=== PATIENT | male | born 1980 | race Hispanic/Latino ===

== ENCOUNTER 2020-11-26 11:46 | Outpatient (NON) | payer OTHER, SELFPAY ==
[2020-11-27 00:37] LABS: SARS-CoV-2 RNA PCR Positive
== END 2020-11-26 11:47 ==
PROVIDERS: Visit Provider Physician Assistant
DX: U07.1 COVID-19 (principal)
CPT/HCPCS: C9803; U0003; U0005

== ENCOUNTER 2025-02-16 00:07 | Day surgery (SDC) | payer OTHER, SELFPAY ==
[2025-02-05 13:57] VITALS: BMI 43.6
--- OUTSIDE RECORDS SUMMARY | 2025-02-16 00:12 | XMS_ITS | Continuity of Care Document ---
Author Organization [facility] Address [address] [place] [address] [address] [place] [address] Phone Care Team Providers Care Compliance Lead Name Role Phone Caren Lundberg Unavailable Unavailable Procedures Procedure Date Remove Foreign Body From Eye Advance Directives Directive Yes / No Effective Date File Name No Information Encounters Encounter Description Practice Location Reason(s) For Visit Diagnoses Date Provider Providers Copied on Encounter [facility], [id number] [place] [address] [address], [place], [place], [id number], [place] tel:[phone] [facility] [place] No Information [phone] Tamika Fabian. [address] [facility] , [address], [place], [address], [place]. tel:[phone] Family History Family Member Type Diagnosis Age At Onset No Information Payers Payer name Insurance type Covered constitution party ID Authoriza tion(s) No Information Social History Type Description Quantity Date Captured Comments Sex Male Smoking Status No Information Chief Complaint And Reason For Visit No Information Reason For Referral Reason For Referral No Information History Of Present Illness Encounter Date Complaint History Of Prese nt Illness No Information Functional Status Date Functional Assessmen t No Information Instructions Date Instruction Additional Infor mation No Information Assessments Type Assessment Date No Information Patient Care Teams Name Effective Dates (start - stop) Status Members No Information
--- OUTSIDE RECORDS SUMMARY | 2025-02-16 00:12 | XMS_ITS | Data Portability ---
Author Organization [place] - [facility], Yen Flood Address [address] [place] [address] Assessment No assessment recorded. Plan of Treatment Reminders Order Date Submit Date Provider Last Modified By Organization Details Last Modified Time Details Appointments InPerson; Chronic Disease Mgmt 2024 07:00A Elpidio Kessler NP Not available Not available Not available Lab TSH, ultra-sen sitive, serum 2023 [facility] [address] [place] [address], [address], 08/02/2024 10:16:28 lipid panel, serum 2023 024 [facility] [address] [place] [address], [address], 08/02/2024 10:16:28 HbA1c (hemoglob in A1c), blood 2023 024 [facility], [address] [place] [address], [address], 08/02/2024 10:16:28 CMP, serum or plasma 2023 024 [facility] [address] [place] [address], [address], 08/02/2024 10:16:27 Referral gastroent erologist referral - Screening colonosco py - family hx of colon cancer in early 40s. 2023 024 Norm Holder MD, [address], [address], [place], [address], 09/13/2024 09:45:17 Procedures colonosco py screening (PROC) - Sister with colon cancer at age 43. Needs screening colonosco py. 2023 024 [email or web address] [facility] Referral Coordinators, [address] [facility], [address], [place], [address], 11/01/2024 15:43:47 Surgeries None recorded. Imaging electroca rdiogram 2024 025 [facility], [address] [place] [address], [phone], 11/01/2024 11:05:36 Medication Orders lisinopri l 20 mg tablet 2024 025 [facility], [address] [place] [address], [address], 11/01/2024 08:27:23 lisinopri l 20 mg tablet [address], [address] [place] [address], [address], 08/01/2024 09:33:46 Patient TargetsNo targets recorded. Patient InstructionsNo instructions recorded. 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 Referring Physician: Lyric Cr, Family Medicine, Encounter Date: 05/30/2024 Results Created Date Observation Date Name Description Value Unit Range Abnormal Flag Note LastModifiedBy Organization Detail LastModifiedTime 08/01/2008/02/2024 COMP. METAB OLIC PANEL (14) glucose 107 mg/dL 70-99 above high normal Not Available [facility] ([facility]) [address] [facility], [place], [address], 08/02/2024 10:16:27 08/01/2008/02/2024 COMP. METAB OLIC PANEL (14) BUN 17 mg/dL 6-24 normal Not Available [facility] ([facility]) [address] [place] [place], [address], 08/02/2024 10:16:27 08/01/20 24 08/02/2024 COMP. METAB OLIC PANEL (14) creatinine 0.75 mg/dL 0.76-1 .27 below low normal Not Available [facility] ([facility]) [address] [place] [place], [address], 08/02/2024 10:16:27 08/01/20 24 08/02/2024 COMP. METAB OLIC PANEL (14) eGFR 116 mL/mi n/1.7 3 >59 normal Not Available [facility] ([facility]) [address] [place] [place], [address], 08/02/2024 10:16:27 08/01/20 24 08/02/2024 COMP. METAB OLIC PANEL (14) BUN/creatini ne ratio 23 9-20 above high normal Not Available [facility] ([facility]) [address] [place], [address], 08/02/2024 10:16:27 08/01/20 24 08/02/2024 COMP. METAB OLIC PANEL (14) sodium 137 mmol/ L 134-14 4 normal Not Available [facility] ([facility]) [address] [place], [address], 08/02/2024 10:16:27 08/01/20 24 08/02/2024 COMP. METAB OLIC PANEL (14) potassium 4.6 mmol/ L 3.5-5. 2 normal Not Available [facility] ([facility]) [address] [place], [address], 08/02/2024 10:16:27 08/01/20 24 08/02/2024 COMP. METAB OLIC PANEL (14) chloride 101 mmol/ L 96-106 normal Not Available [facility] ([facility]) [address] [facility] [place], [address], 08/02/2024 10:16:27 08/01/20 24 08/02/2024 COMP. METAB OLIC PANEL (14) carbon dioxide, total 24 mmol/ L 20-29 normal Not Available [facility] ([facility]) [address] [facility] [place], [address], 08/02/2024 10:16:27 08/01/20 24 08/02/2024 COMP. METAB OLIC PANEL (14) calcium 9.9 mg/dL 8.7-10 .2 normal Not Available [facility] ([facility]) [address] [facility] [place], [address], 08/02/2024 10:16:27 08/01/20 24 08/02/2024 COMP. METAB OLIC PANEL (14) protein, total 6.8 g/dL 6.0-8. 5 normal Not Available [facility] ([facility]) [address] [place], [address], 08/02/2024 10:16:27 08/01/20 24 08/02/2024 COMP. METAB OLIC PANEL (14) albumin 4.6 g/dL 4.1-5. 1 normal Not Available [facility] ([facility]) [address] [place], [address], 08/02/2024 10:16:27 08/01/20 24 08/02/2024 COMP. METAB OLIC PANEL (14) globulin, total 2.2 g/dL 1.5-4. 5 Not Available [facility] ([facility]) [address] [place], [address], 08/02/2024 10:16:27 08/01/20 24 08/02/2024 COMP. METAB OLIC PANEL (14) bilirubin, total 0.4 mg/dL 0.0-1. 2 normal Not Available [facility] ([facility]) [address] [place], [address], 08/02/2024 10:16:27 08/01/2008/02/2024 COMP. METAB OLIC PANEL (14) alkaline phosphatase 57 IU/L 44-121 normal Not Available [facility]) [address] [place], [address], 08/02/2024 10:16:27 08/01/2008/02/2024 COMP. METAB OLIC PANEL (14) AST (SGOT) 19 IU/L 0-40 normal Not Available [facility] ([facility]) [address] [place], [address], 08/02/2024 10:16:27 08/01/2008/02/2024 COMP. METAB OLIC PANEL (14) ALT (SGPT) 17 IU/L 0-44 normal Not Available [facility] ([facility]) [address] [facility], [place], [address], 08/02/2024 10:16:27 08/01/2008/02/2024 LIPID PANEL WITH LDL/H DL RATIO cholesterol, total 187 mg/dL 100-19 9 normal Not Available [facility] ([facility]) [address] [facility], [place], [address], 08/02/2024 10:16:28 08/01/2008/02/2024 LIPID PANEL WITH LDL/H DL RATIO triglyceride s 79 mg/dL 0-149 normal Not Available [facility] ([facility]) [address] [place], [address], 08/02/2024 10:16:28 08/01/2008/02/2024 LIPID PANEL WITH LDL/H DL RATIO HDL cholesterol 59 mg/dL >39 normal Not Available [facility] ([facility]) [address] [place] [place], [address], 08/02/2024 10:16:28 08/01/20 24 08/02/2024 LIPID PANEL WITH LDL/H DL RATIO VLDL cholesterol lizabeth 15 mg/dL 5-40 Not Available [facility] ([facility]) [address] [place], [address], 08/02/2024 10:16:28 08/01/20 24 08/02/2024 LIPID PANEL WITH LDL/H DL RATIO LDL chol calc ([facility]) 113 mg/dL 0-99 above high normal Not Available [facility] ([facility]) [address] [facility], [place], [address], 08/02/2024 10:16:28 08/01/2008/02/2024 LIPID PANEL WITH LDL/H DL RATIO LDL calc comment: [employer] Not Available [facility] ([facility]) [address] [facility], [place], [address], 08/02/2024 10:16:28 08/01/2008/02/2024 LIPID PANEL WITH LDL/H DL RATIO LDL/HDL ratio 1.9 ratio 0.0-3. 6 LDL/H DL Ratio Men Women 1/2 Avg.R isk 1.0 1.5 Avg.R isk 3.6 3.2 2X Avg.R isk 6.2 5.0 3X Avg.R isk 8.0 6.1 Not Available [facility] ([facility]) [address] [place], [address], 08/02/2024 10:16:28 08/01/2008/02/2024 HEMOG LOBIN A1C hemoglobin A1C 5.6 % 4.8-5. 6 normal Predi abete s: 5.7 - 6.4 Diabe preethi: >6.4 Glyce juma contr ol for adult s with diabe preethi: <7.0 Not Available [facility] ([facility]) [address] [facility], [place], [address], 08/02/2024 10:16:28 08/01/2008/02/2024 TSH RFX ON ABNOR MAL TO FREE T4 TSH 2.480 uIU/m L 0.450- 4.500 normal Not Available [facility] ([facility]) [address], [place], [address], 08/02/2024 10:16:28 11/01/19 25 11/01/2024 elect rocar diogr am No observ ation record ed. [email or web address] [employer] [address] [place], [address], 11/01/2024 11:05:26 11/01/19 25 11/01/2024 elect rocar diogr am No observ ation record ed. 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 Problems Name Problem SNOMED Code Status Onset Date Resolution Date Notes Provider Name and Address Organization Details Recorded Time Morbid obesity 722842280 Active 2021 Richelle Ervin [place], [place] - [facility] 4 18:36:42 Obstructive sleep apnea syndrome 34745505 Active 2022 Richelle bartlett, [place] - [facility] 4 18:36:48 Tobacco user 930400823 Active 2021 Richelle bartlett, [place] - [facility] 4 18:36:53 Hypertensive disorder 65290457 Active 2022 Richelle [place]lett, [place] - [facility] 4 18:36:35 Scrotal mass 19235628 Active 2023 Lyric Cr NP [address], [email or web address], [address], [place] [facility] 4 15:18:59 Family history of cancer of colon 156465935 Active 2024 Sister - age 43 Jacquie Kessler NP [address], [email or web address], [address], [place] [facility] 5 08:09:00 Problem Notes None recorded. Procedures Surgical History None recorded. Imaging Results Imaging Date Name Status LastModified by Organization Details LastModified Time 11/01/2024 electrocardiogram completed [employer] [address] [place], [address], 11/01/2024 11:05:26 11/01/2024 electrocardiogram completed [email or web address] [employer] [address] [place], [address], 11/01/2024 10:27:39 Procedure Notes None recorded. Medical Equipment None Reported. Allergies Allergen ID Allergen Name Allergen Category Reaction Reaction Severity Criticality Documentation Date Start Date Code Code System Note Provider Name and Address Organization Details Recorded Time 974070 No Allergy Informati on Available Not available Not available Not available Not available 02/10/2024 90702 VocalizeLocal Comme nt: React ion Class : Aller gy; Richelle Ervin [place], [place] - [facility] 4 18:35:50 No known drug allergies Medications Name Sig Start Date Stop Date Status Note LastModified by Organization Details LastModified Time Twinrix 720 RA unit-20 mcg/mL intramusc ular suspensio n 06/24 completed StopType : Physicia n Stop Eddie gIdentif icationN umber: [id number] N extDoseD ate: 3 9:45:00 AM Const antIndic ator: No CSASc hedule: 0 active _status_ dt_tm: 3 9:45:22 AM Not Available Not Available Not Available lisinopri l 20 mg tablet Take 1 tablet every day by oral route. 2024 active Not Available Not Available Not Avai lable phentermi ne 37.5 mg tablet 0.5-1 tab(s) Oral daily 05/30 completed Not Available Not Available Not Available lisinopri l 10 mg tablet 1 tab(s) Oral daily 11/01 completed Not Available Not Available Not Available hydrochlo rothiazid e 12.5 mg capsule TAKE ONE CAPSULE BY MOUTH ONCE DAILY 06/24 completed StopType : Physicia n Stop Eddie gIdentif icationN umber: [id number] S cheduled PRN: No Const antIndic ator: Yes CSAS chedule: 0 active _status_ dt_tm: 3 12:48:51 PM Not Available Not Available Not Available albuterol 90 mcg/actua tion aerosol inhaler 2 puff(s) Inhale q4-6 hrs,PRN: take 10 minutes before exercise for shortnes s of breath 2022 active Not Available Not Available Not Avai lable Adacel (Tdap Adolesn/A dult)(PF) 2 Lf-(2.5-5 -3-5)-5 Lf/0.5 mL IM syringe 04/02 completed StopType : Physicia n Stop Eddie gIdentif icationN umber: [id number] N extDoseD ate: 04/02/2022 2:26:00 PM Const antIndic ator: No CSASc hedule: 0 active _status_ dt_tm: 04/02/2022 2:46:31 PM Not Available Not Available Not Available Vitals Date Recorded Body height Body mass index (BMI) Body weight Body temperature Oxygen saturation Oxygen saturation in Arterial blood by Pulse oximetry Heart rate Systolic blood pressure Diastolic blood pressure Provider Name and Address Organization Details Last Updated DateTime 4 185.42 cm 46.8 kg/m2 437180. 29 g 97.3 [degF] 98 % 98 % 82 /min 150 mm[Hg] 92 mm[Hg] Jessica Lee [place] [facility] 4 15:01:20 Date Recorded Body height Body mass index (BMI) Body weight Body temperature Oxygen saturation Oxygen saturation in Arterial blood by Pulse oximetry Heart rate Respiratory rate Systolic blood pressure Diastolic blood pressure Provider Name and Address Organization Details Last Updated DateTime 4 180.34 cm 48 kg/m2 252902. 78 g 98 [degF] 100 % 100 % 77 /min 17 /min 143 mm[Hg] 82 mm[Hg] Winnie Carrillo [place] [facility] 4 09:12:25 Date Recorded Body height Body mass index (BMI) Body weight Heart rate Body temperature Oxygen saturation Oxygen saturation in Arterial blood by Pulse oximetry Respiratory rate Systolic blood pressure Diastolic blood pressure Provider Name and Address Organization Details Last Updated DateTime 5 180.34 cm 47.6 kg/m2 486246 g 74 /min 98.5 [degF] 98 % 98 % 16 /min 142 mm[Hg] 85 mm[Hg] Tyrell Lorenzo [place] [facility] 08:09:25 Date Recorded Systolic blood pressure Diastolic blood pressure Provider Name and Address Organization Details Last Updated DateTime 11/01/2024 126 mm[Hg] 82 mm[Hg] Jacquie Kessler, [employer] [address], [facility], [address], [place] [facility] 11/01/2024 08:29:10 Social History Question Answer Notes LastModified by Organization Details LastModified Time Tobacco Smoking Status Former Smoker Richelle Mueller [place], [place] [facility] 05/27/2024 18:40:31 What Is Your Level Of Alcohol Consumption? Moderate [email or web address] Information not available 11/01/2024 What Is Your Level Of Caffeine Consumption? Moderate Information not available 05/27/2024 How Much Tobacco Do You Chew? None Information not available 11/01/2024 In The 14 Days Before Symptom Onset, Have You Had Close Contact With A Laboratory-confi rmed COVID-19 While That Case Was Ill? No Information not available 05/30/2024 In The 14 Days Before Symptom Onset, Have You Had Close Contact With A Person Who Is Under Investigation For COVID-19 While That Person Was Ill? No [email or web address] Information not available 08/01/2024 Have You Been To An Area Known To Be High Risk For COVID-19? No Information not available 05/30/2024 Are You Currently Employed? Yes [email or web address] Information not available 05/27/2024 Do You Or Have You Ever Used E-cigarettes Or Vape? Never Used Electronic Cigarettes [email or web address] Information not available 05/27/2024 What Is The Highest Grade Or Level Of School You Have Completed Or The Highest Degree You Have Received? EE80476-5 [email or web address] Information not available 11/01/2024 What Is Your Occupation? [employer] Information not available 05/27/2024 When Did You Quit Smoking? 11-15yearssincelpiedad lange Information not available 05/27/2024 Cigar Smoking No [email or web address] Information not available 05/27/2024 Does Anyone Insult Or Talk Down To You? Never [email or web address] Information not available 11/01/2024 Does Anyone Physically Hurt You At Home? Never [email or web address] Information not available 11/01/2024 Does Anyone Scream Or Curse At You? Never [email or web address] Information not available 11/01/2024 Does Anyone Threaten/bully You With Harm? Never [email or web address] Information not available 11/01/2024 Lives With And 2 Kids [email or web address] Informati on not available 05/27/2024 Sleep Habits At Night [email or web address] Information not available 11/01/2024 Have You Ever Served In The ? No [email or web address] Information not available 11/01/2024 What Was The Date Of Your Most Recent Tobacco Screening? 05/30/2024 Information not available 05/30/2024 What Is Your Current Pack Years? 10packyears [email or web address] Information not available 05/27/2024 What Is Your Relationship Status? [email or web address] Information not available 05/27/2024 Do You Or Have You Ever Used Smokeless Tobacco? Former Smokeless Tobacco User Chewed Tobacco For 20 Years. Nicotine Pouches tore Up His Gums And Quit (10/2021). [email or web address] Information not available 08/01/2024 How Much Tobacco Do You Smoke? 0.25 PPD [email or web address] Information not available 08/01/2024 Has Tobacco Cessation Counseling Been Provided? No [email or web address] Information not available 11/01/2024 How Many Years Have You Smoked Tobacco? 8 [email or web address] Information not available 08/01/2024 Do You Or Have You Ever Used Any Other Forms Of Tobacco Or Nicotine? Yes [email or web address] Information not available 05/27/2024 Sex: Unknown Functional Status None recorded. Mental Status None recorded. Family History Relationship Description Onset Age of this Age Resolved Age Notes LastModified by Organization Details LastModified Time Father History of transient ischemic attack [email or web address] Not available 2024 08:01:06 Father Cerebrovascu lar accident [email or web address] Not available 12/2023 18:37:28 Sister Subarachnoid hemorrhage [email or web address] Not available 11/01 08:01:07 Mother Hypertensive disorder [email or web address] Not available 2023 18:37:58 Mother Cardiac pacemaker in situ [email or web address] Not available 2024 08:01:07 Medical History No medical history recorded. Immunizations Vaccine Type Date Status Note Provider Nam e and Address Organization Details Recorded Time Hep A-Hep B 04/14/2023 completed Not Available [facility] 02/10/2024 15:11:02 Tdap 04/02/2022 completed Not Available [facility] 02/10/2024 15:11:03 Hep A-Hep B 06/24/2023 completed Not Available [facility] 02/10/2024 15:11:03 Hep A-Hep B 08/01/2024 completed Winnie bartlett, [place] [facility] 08/01/2024 14:33:52 Past Encounters Encounter ID Performer Location Encounter Start Date Encounter Closed Date Diagnosis/Indication Diagnosis SNOMED-CT Code Diagnosis ICD10 Code Diagnosis Note [id number] MACHO Davis s [address] [place] [address] 05/30/2024 14:51:18 05/31/2024 08:39:16 Scrotal mass 19039167 N50.89 No mass palpable on exam of right scrotum today.Disc ussed ordering US of scrotum if mass is noted again.Foll ow up PRN Screening for malignant neoplasm of colon 954358608 Z12.11 Refer to GI for screening colonoscop yFollow up for annual PE and BP management [id number] MACHO Cisse s [address] [place] [address] 08/01/2024 09:00:02 08/01/2024 09:55:29 Adult health examination 407820295 Z00.00 Briefly discussed healthy diet and regular exercise.E ncouraged to be tobacco free.Encou raged to avoid binge drinking or more than 2 drinks per day. Annual eye exam and biannual dental cleanings recommende d. Discussed recommende d vaccines and screenings per HPI. Discussed option to follow up with physician in 2 weeks for new conditions . [email or web address] Family his tory of cancer of colon 286747515 Z80.0 Sister with colon cancer at age 43. He is due for screening. Essential hypertension 46556857 I10 Increase lisinopril to 20mg daily.Due for baseline EKG but does not have time today. Will do next visit. Active or passive immunization 296422385 Z23 3rd dose of Twinrix today. Morbid obesity 403199022 E66.01 Has been decreasing carbs and lost 11lbs in last 2 months! [id number] Jacquie Kessler, MACHO Clement [address] [place] [address] 11/01/2024 08:00:48 11/01/2024 08:50:54 Essential hypertension 30805282 I10 Lisinopril 20mg daily.Due for baseline EKG Obstructiv e sleep apnea syndrome 01215219 G47.33 Morbid obesity 447362175 E66.01 Has been decreasing carbs and lost 15lbs! Keep up the good work. Health see mark behavior 870789228 Z76.89 Family his tory of cancer of colon 984493839 Z80.0 Sister with colon cancer at age 43. He is scheduled for endoscopy 02/16/2025 Health Concerns Section Related Observation LastModified by Organization Detai ls LastModified Time None Recorded Concern Status LastModified by Organization Details LastModified Time None Recorded Advance Directives Directive None Recorded Payers Encounter Date Sequence Insurance Name Policy Number Policy Cline Covered Member ID Cline Member ID Guarantor Name 05/30/2024 1 [facility] [employer] ANA[employer] - [place] [id number] Josiah Mackey [id number] Josiah Mackey 08/01/2024 1 [facility] [id number] Josiah Mackey [id number] Josiah Mackey 11/01/2024 1 [facility] [id number] Josiah Mackey [id number] Josiah Mackey Notes Date Note Type Note Provider Name and Address Organization Details Recorded Time 05/30/2024 text/html 43 y/o male pres ents today withcomplaints of lump on right testicle for the past 2 weeks. No pain, erythema, warmth, drainage or bleeding.No family history of testicular cancer.States +family history of colon cancer - sister and cousin in their early 40s. Denies constipation and blood stools. Is interesting in screening colonoscopy even though he is fearful of doctor's office. Lyric Cr NP [address], [place], [address], [place] [facility] 05/30/2024 15:35:42 08/01/2024 text/html The patient pres ents for well adult exam. Health concerns:HTN in lisinopril 10mg. Thought hctz (on previously) caused weight gain. No lightheadness, dizziness, shortness of breath, chest pain or edema.Runs 138/85, higher in afternoon at work.Sleep study showed mild sleep apnea. Uvaldo Cummings called but never followed thru to set up CPAP. Sleeps fine but wears ear plugs at night. Hep B #3 due 10/2023.Diet: Watching carbs for about a month - feeling better in general.Exercise: walks the neighborhood most nights.Sleep: mild sleep apneaCaffeine use: coffee in morning, no soda or energy drinks.Tobacco use: quit 15 years ago. Less than 10 year history. Chewed tobacco for 20 years, quit 2019. Nicotine pouches tore up his gums and quit over a year ago. 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 Colonoscopy: sister with colon cancer in 43. Colonoscopy ordered in May but insurance denied. Anxiety / Depression concerns: none Tdap: OVID: noneDeclines flu shots. Jacquie Kessler NP [address], [place], [address], [place] [facility] 08/01/2024 09:48:10 11/01/2024 text/html HTN on lisinopri l 20mg (increased dose last visit). Thought hctz (on previously) caused weight gain. No lightheadness, dizziness, shortness of breath, chest pain or edema.Runs 135/85 at homeDue for EKG.Sleep study showed mild sleep apnea. Uvaldo Cummings called but never followed thru to set up CPAP. Sleeps fine but wears ear plugs at night. Sister with history of colon cancer at age 43. Was referred for screening colon cancer.Was denied multiple times by insurance but finally scheduled for 02/16. Obesity: Has been decreasing carbs and lost from 355lb to 341! Jacquie Kessler NP [address], [place], [address], [place] - [facility] 11/01/2024 08:31:45
[2025-02-16 06:09] VITALS: BP 168/85; PULSE 84; RESP 20; TEMP 36.2; O2SAT 99; BMI 43.3
[2025-02-16] MEDS: LACTATED RINGERS 1,000 ML 150 ML IV CONT (06:28)
--- NOTE | 2025-02-16 06:55 | WPDANESEPPF ---
Anes - Initial Pre Proc Eval Procedure: Operation Date: 02/16/25 07:30 Proposed Procedures p Colonoscopy - Shravan Zelaya MD Date/Time: 02/16/25 06:55 Surgeon: Shravan Zelaya MD Pre Op Diagnosis: family hx of neoplasm Patient Data Age: 44 Gender: M Height: 1.85 m Weight: 148.9 kg Last Vital Signs Temp 36.2 C L 02/16/25 06:09 Pulse 84 02/16/25 06:09 Resp 20 02/16/25 06:09 BP 168/85 H 02/16/25 06:09 Pulse Ox 99 02/16/25 06:09 O2 Del Method Room Air 02/16/25 06:09 Allergies Allergy/AdvReac Type Severity Reaction Status Date / Time No Known Allergies Allergy Verified 02/16/25 06:15 Home Medications ?Medication ?Instructions ?Recorded ?Confirmed ?Type lisinopril 20 mg tablet 20 mg PO DAILY 09/27/24 02/16/25 History Patient hx anesthesia problems: none Family hx anesthesia problems: none Results Review: All pre-operative results and documents have been reviewed as part of the pre-operative evaluation. [facility] Past Medical History Medical History (Updated 09/27/24 @ 11:26 by Rabia Arnold APRN) Obesity Sleep apnea Hypertension Family History Family History (Updated 09/27/24 @ 11:26 by Rabia Arnold APRN) Mother Family history of hypercholesterolemia Sibling Carcinoma of colon age 43 Other Carcinoma of colon age 30s Social History Social History Smoking packs per day: 1 Smoking cigarettes per day: 20.0 Years smoked: 8 Smoking pack-years: 8.00 Smoking status: Former smoker Smoking end date: 10/25/03 Alcohol intake: current Drinks per week: 10 Alcohol use details: Beer, wine Substance use: never Substance use type: does not use Living arrangements: with family Spiritual care concerns: No Anes - Eval Final PreProcedure Day of Procedure 02/16/25 06:55 Patient weight: morbidly obese Heart: regular rate and rhythm Lungs: clear to auscultation Airway: Mallampati scale class II Neurological: alert and oriented Last oral intake: >/= 8 hours ASA classification: III Emergent: no Anesthetic plan: proceed Anesthesia type and monitoring: general GIVS and standard monitoring Results Review: All pre-operative results and documents have been reviewed as part of the pre-operative evaluation. Informed Consent: The patient's anesthetic plan and its attendant risks and benefits were discussed with the patient/family/POA. Questions were solicited and answers provided to the satisfaction of the patient/family/POA.
--- NOTE | 2025-02-16 07:31 | PM.IMHP ---
H&P: HPI History of Present Illness Date/Time: 02/16/25 07:31 Chief Complaint: Family history of colorectal cancer Narrative: This patient has family history of colorectal cancer. his sister, who is a year younger than him, had colorectal cancer. Review of Systems Review of Systems: All systems reviewed & are unremarkable except as noted in HPI and below PMFSH Past Medical History Medical History (Updated 09/27/24 @ 11:26 by Rabia Arnold APRN) Obesity Sleep apnea Hypertension Family History Family History (Updated 09/27/24 @ 11:26 by Rabia Arnold APRN) Mother Family history of hypercholesterolemia Sibling Carcinoma of colon age 43 Other Carcinoma of colon age 30s Social History Social History Smoking packs per day: 1 Smoking cigarettes per day: 20.0 Years smoked: 8 Smoking pack-years: 8.00 Smoking status: Former smoker Smoking end date: 10/25/03 Alcohol intake: current Drinks per week: 10 Alcohol use details: Beer, wine Substance use: never Substance use type: does not use Living arrangements: with family Spiritual care concerns: No Meds Home Medications and Allergies Home Medications ?Medication ?Instructions ?Recorded ?Confirmed ?Type lisinopril 20 mg tablet 20 mg PO DAILY 09/27/24 02/16/25 History Allergies Allergy/AdvReac Type Severity Reaction Status Date / Time No Known Allergies Allergy Verified 02/16/25 06:15 Vital Signs Vital Signs - 24 hr 02/16/25 06:09 Temperature 97.1 F L Pulse Rate 84 Respiratory Rate 20 Blood Pressure 168/85 H Pulse Oximetry 99 Oxygen Delivery Room Air Exam Const: General: cooperative and healthy appearing Resp: Effort & Inspection: normal respiratory effort and able to speak in complete sentences Auscultation: clear to auscultation bilaterally Cardio: Rate: regular rate Rhythm: regular rhythm GI: Inspection: normal to inspection GI Palp: No No hepatosplenomegaly present Auscultation: normal bowel sounds Rectal Exam: deferred Skin: General skin exam: normal color Psych: Appearance: grossly normal Mental Status: mental status grossly normal Assessment and Plan Assessment and plan (1) Family history of malignant neoplasm of colon in first degree relative diagnosed when younger than 60 years of age: Code(s): Z80.0 - Family history of malignant neoplasm of digestive organs Status: Acute Plan The patient is deemed a good candidate for the procedure. Consent signed. Will proceed.
[2025-02-16 07:51] VITALS: BP 125/82; PULSE 73; RESP 20; O2SAT 98
[2025-02-16 08:01] VITALS: BP 122/77; PULSE 65; RESP 15; O2SAT 99
[2025-02-16 08:11] VITALS: BP 137/83; PULSE 58; RESP 20; O2SAT 100
== END 2025-02-16 08:17 | disposition home or self-care (01) ==
PROVIDERS: Referring Provider Nurse Practitioner; Visit Provider Internal Medicine Gastroenterology
PROC: 0DJD8ZZ Inspection of Lower Intestinal Tract, Via Natural or Artificial Opening Endoscopic (ICD-10-PCS; CPT 45378; principal; 2025-02-16 07:30)
DX: Z12.11 Encounter for screening for malignant neoplasm of colon (principal); I10 Essential (primary) hypertension; G47.30 Sleep apnea, unspecified; E66.01 Morbid (severe) obesity due to excess calories; Z68.41 Body mass index [BMI] 40.0-44.9, adult; Z87.891 Personal history of nicotine dependence; Z80.0 Family history of malignant neoplasm of digestive organs
CPT/HCPCS: 45378; J2003; J2704; J7120